=== PATIENT | male | born 1960 | race Caucasian/White ===

== ENCOUNTER → 2016-10-31 | Outpatient (CLI) | payer BC ==
--- NOTE | 2016-11-11 08:58 | OR ---
ADMIT: 10/31/2016 RM/LOC: [facility] [place] MR#: [id number] [address] [place] [id number] JOEY, [place] [address] Operative/Delivery Room Report SEX: M AGE: 56 : 1960 SURGERY DATE: 10/31/2016 SURGEON: Logan Watkins MD PREPROCEDURE DIAGNOSIS: Left hip degenerative joint disease. POSTPROCEDURE DIAGNOSIS: Left hip degenerative joint disease. PROCEDURE: Left hip joint injection with steroid under fluoroscopy. ANESTHESIA: Local. ESTIMATED BLOOD LOSS: None. COMPLICATIONS: None. CONDITION: Stable from fluoroscopy suite. INDICATIONS: The patient is a 56-year-old male with some long-standing left hip pain. He was seen in the office, was found to have a fairly significant degenerative joint disease of the hip. We talked about treatment options at that time. He does not feel he is ready to proceed with hip replacement at this point, and would like to try something to relieve his pain and increase time prior to getting his hip replaced. We did talk about trying a hip injection and he would like to try this. We discussed the procedure as well as risks and benefits with him, questions were answered. He does agree to proceed today. PROCEDURE: After informed consent was obtained, the patient was taken to the fluoroscopy suite. The patient was then placed on the fluoroscopy table in ADMIT: 10/31/2016 RM/LOC: [facility] [place] MR#: [id number] [address] [place] [id number] JOEY, [place] [address] Operative/Delivery Room Report SEX: M AGE: 56 : 1960 supine position. We then got a fluoroscopic view of the left hip. Once this was completed, we marked our landmarks to include the superior portion of the pubis and ASIS and marked a spot where these lines intersected. Once this was completed, the skin was sterilely prepped. We then placed a spinal needle under fluoroscopy from the skin to the hip joint, injecting about 10 mL of 50:50 mixture of 2% lidocaine plain and 0.5% Marcaine plain. Once this was completed, we then placed a 22-gauge spinal needle along this tract into the hip joint confirming placement in the hip joint by fluoroscopy. Once we confirmed the tip of the needle was in the hip joint, we then injected 2 mL of 2% lidocaine plain, 2 mL of 0.5% Marcaine plain, and 2 mL of Kenalog. The patient tolerated this well and was transferred from the fluoroscopy suite in stable condition. Logan Watkins MD/ drew JOB #: [id number] CC: Logan Watkins, Attending Physician Manuel Daugherty, Family Physician
== END | disposition home or self-care (01) ==
LOC: RAD.S 08:18
PROC: 0S9B3ZZ Drainage of Left Hip Joint, Percutaneous Approach (ICD-10-PCS; principal; 2016-10-31)
DX: M25.552 Pain in left hip (principal); M16.12 Unilateral primary osteoarthritis, left hip